=== PATIENT | female | born 1955 | race Caucasian/White ===

== ENCOUNTER 2022-05-28 09:41 | Inpatient (IN) | payer MEDICAID ==
[~2022-05-28] VITALS: Ht 157.5 cm; Wt 63.5 kg
[~2022-05-28 09:41] MED LIST: ASPI-1497 PO; GLIM2TAB30 PO; METF-414 PO; OMEP20CA4 PO; blood pressure PO
[2022-05-28 10:37] LABS: BASOPHILS % 0.6 % (0.0-2.0); EOSINOPHILS % 0.1 % (0.0-5.0); HEMATOCRIT. 24.4 % (36.0-48.0); HEMOGLOBIN. 8.3 g/dL (12.0-16.0); LYMPHOCYTES % 9.2 % (20.0-50.0); MEAN CORPUSCULAR HEMOGLOBIN 30.5 pg (28.0-32.0); MEAN CORPUSCULAR VOLUME 89.6 fL (81.0-99.0); MONOCYTES % 11.2 % (2.0-8.0); NEUTROPHILS % 78.9 % (40.0-76.0); PLATELET 306 x1000/uL (130-400); RED BLOOD CELL COUNT 2.72 mill/uL (4.2-5.4); RED CELL DISTRIBUTION WIDTH 14.2 % (11.6-14.6)
[2022-05-28 10:45] LABS: CHLORIDE 87 mEq/L (98-107)
[2022-05-28] MEDS ORDERED: SODIUM CHLORIDE 0.9% 1,000 ML IV ONE (11:30)
[2022-05-28] MEDS ORDERED: ONDANSETRON HCL 4MG/2ML INJ IV PRN (14:00)
[2022-05-28 16:45] VITALS: BP 126/54
[2022-05-28] MEDS ORDERED: CEFTRIAXONE 1 G PREMIX 50 ML IV SCH (16:45)
[2022-05-28] MEDS ORDERED: DEXTROSE 50% WATER 50ML SYRINGE IV PRN (16:45)
[2022-05-28] MEDS ORDERED: AZITHROMYCIN 500MG/250ML 250 ML IV NR (16:45)
[2022-05-28] MEDS: BLOOD SUGAR DIAGNOSTIC STRIP TEST SCH ×2 (17:20→20:40)
[2022-05-28] MEDS: INSULIN LISPRO 100 UNITS/ML SUBCUT SCH ×2 (17:50→21:23)
[2022-05-28 17:56] VITALS: BP 126/64
[2022-05-28] MEDS: ACETAMINOPHEN 325MG TABLET PO PRN (19:07)
[2022-05-28 20:00] VITALS: BP 87/34
[2022-05-28] MEDS ORDERED: SODIUM CHLORIDE 0.9% 500 ML IV NR (20:45)
[2022-05-28] MEDS ORDERED: EPOETIN ALFA 10000UNITS/ML VIAL SUBCUT NR (21:00)
[2022-05-28] MEDS: CEFTRIAXONE 1,000 MG in DEXTROSE 5% WATER 50 ML IV SCH (21:48)
[2022-05-28 22:15] VITALS: BP 104/42
[2022-05-29] VITALS: BP 114/55
[2022-05-29 04:00] VITALS: BP 107/56
[2022-05-29] MEDS: BLOOD SUGAR DIAGNOSTIC STRIP TEST SCH ×4 (06:40→21:07)
[2022-05-29] MEDS: INSULIN LISPRO 100 UNITS/ML SUBCUT SCH ×4 (07:10→21:00)
[2022-05-29 07:18] LABS: BASOPHILS % 0.5 % (0.0-2.0); EOSINOPHILS % 0.1 % (0.0-5.0); HEMATOCRIT. 24.6 % (36.0-48.0); HEMOGLOBIN. 8.5 g/dL (12.0-16.0); MEAN CORPUSCULAR HEMOGLOBIN 30.7 pg (28.0-32.0); MEAN CORPUSCULAR VOLUME 88.4 fL (81.0-99.0); MEAN PLATELET VOLUME 7.7 fl (7.4-10.4); MONOCYTES % 11.6 % (2.0-8.0); NEUTROPHILS % 74.8 % (40.0-76.0); PLATELET 333 x1000/uL (130-400); RED BLOOD CELL COUNT 2.78 mill/uL (4.2-5.4)
[2022-05-29 07:26] LABS: INR 1.1; PARTIAL THROMBOPLASTIN TIME 34.9 sec (23.4-31.0); PROTHROMBIN TIME 11.8 sec (9.6-11.0)
[2022-05-29 07:43] LABS: BG BASE EXCESS -12.5 mmol/L (-2.0-2.0); BG CARBOXYHEMOGLOBIN 0.1 % (0.5-1.5); BG HCO3 ACT 13.8 mmol/L (22.0-26.0); BG OXYGEN SATURATION 93.9 % (92.0-98.5); BG OXYHEMOGLOBIN 92.9 % (94.0-97.0); BG PCO2 32.9 mmHg (35.0-45.0); BG PO2 83.7 mmHg (75.0-100.0); BG SAMPLE SITE RIGHT BRACHIAL; BG TOTAL HEMOGLOBIN 11.1 g/dL (12.0-18.0); BG VENT MODE OXYGENATOR
[2022-05-29 08:00] VITALS: BP 106/67
[2022-05-29 08:14] LABS: CHLORIDE 89 mEq/L (98-107)
[2022-05-29 08:36] LABS: CREATINE KINASE 1173 IU/L (26-192)
[2022-05-29 08:46] LABS: PHOSPHORUS 8.3 mg/dL (2.5-4.9)
[2022-05-29 12:00] VITALS: BP 113/71
[2022-05-29] MEDS: SODIUM BICARBONATE 150 MEQ in DEXTROSE 5% WATER 1,000 ML IV SCH ×2 (12:51→23:00)
[2022-05-29] MEDS: DEXAMETHASONE 6MG TABLET PO SCH (12:51)
[2022-05-29] MEDS: ACETAMINOPHEN 325MG TABLET PO PRN (12:52)
[2022-05-29] MEDS: ALBUTEROL 6.7GM HFA INHALER ORI SCH ×3 (12:52→23:30)
[2022-05-29] MEDS: AZITHROMYCIN 500 MG in DEXT 5% WATER 250 ML IV SCH (13:39)
[2022-05-29 16:00] VITALS: BP 118/67
[2022-05-29] MEDS ORDERED: CEFTRIAXONE 1,000 MG in DEXTROSE 5% WATER 50 ML IV SCH (16:00)
[2022-05-29] MEDS ORDERED: SODIUM BICARBONATE 8.4% 1 MEQ/ML 50ML SYR IV NR (16:30)
[2022-05-29] MEDS: CALCIUM CARBONATE 500MG TABLET CHEW PO SCH (18:02)
[2022-05-29 20:00] VITALS: BP 139/67
[2022-05-29] MEDS: CEFTRIAXONE 1,000 MG in DEXTROSE 5% WATER 50 ML IV SCH (21:09)
[2022-05-30] VITALS: BP 126/60
[2022-05-30 04:00] VITALS: BP 129/56
[2022-05-30] MEDS: ALBUTEROL 6.7GM HFA INHALER ORI SCH ×4 (06:27→23:54)
[2022-05-30] MEDS: BLOOD SUGAR DIAGNOSTIC STRIP TEST SCH ×4 (06:27→21:30)
[2022-05-30] MEDS: INSULIN LISPRO 100 UNITS/ML SUBCUT SCH ×4 (06:32→21:27)
[2022-05-30] MEDS: CALCIUM CARBONATE 500MG TABLET CHEW PO SCH ×3 (06:33→17:14)
[2022-05-30 08:00] VITALS: BP 122/69
[2022-05-30 08:19] LABS: BASOPHILS % 0.1 % (0.0-2.0); HEMATOCRIT. 22.9 % (36.0-48.0); LYMPHOCYTES % 8.1 % (20.0-50.0); MEAN CORPUSCULAR HEMOGLOBIN 30.8 pg (28.0-32.0); MEAN CORPUSCULAR VOLUME 87.9 fL (81.0-99.0); MEAN PLATELET VOLUME 7.4 fl (7.4-10.4); MONOCYTES % 3.7 % (2.0-8.0); NEUTROPHILS % 88.1 % (40.0-76.0); PLATELET 379 x1000/uL (130-400); RED BLOOD CELL COUNT 2.61 mill/uL (4.2-5.4); RED CELL DISTRIBUTION WIDTH 14.1 % (11.6-14.6)
[2022-05-30 09:06] LABS: PHOSPHORUS 8.1 mg/dL (2.5-4.9)
[2022-05-30] MEDS: DEXAMETHASONE 6MG TABLET PO SCH (10:09)
[2022-05-30] MEDS: ACETAMINOPHEN 325MG TABLET PO PRN (10:09)
[2022-05-30 12:00] VITALS: BP 113/39
[2022-05-30] MEDS: AZITHROMYCIN 500 MG in DEXT 5% WATER 250 ML IV SCH (14:23)
[2022-05-30 16:00] VITALS: BP 118/43
[2022-05-30 18:44] LABS: CLARITY URINE CLEAR (CLEAR); COLOR URINE YELLOW (YELLOW); KETONES URINE TRACE (NEGATIVE); LEUKOCYTE ESTERASE URINE NEGATIVE (NEGATIVE); NITRITE URINE NEGATIVE (NEGATIVE); OCCULT BLOOD URINE 1+ (NEGATIVE); PROTEIN URINE 2+ (NEGATIVE); SPECIFIC GRAVITY URINE 1.013 (1.005-1.030); UROBILINOGEN URINE 0.2 E.U./dL (0.2-1.0)
[2022-05-30 18:50] LABS: SODIUM URINE RANDOM 16 mEq/L
[2022-05-30] MEDS: CEFTRIAXONE 1,000 MG in DEXTROSE 5% WATER 50 ML IV SCH ×2 (21:29→21:35)
[2022-05-30] MEDS: SODIUM BICARBONATE 150 MEQ in DEXTROSE 5% WATER 1,000 ML IV SCH ×2 (23:39→23:42)
[2022-05-30] MEDS: ALBUTEROL 6.7GM HFA INHALER ORI PRN (23:51)
[2022-05-31] VITALS: BP 124/56
[2022-05-31 04:00] VITALS: BP 127/62
[2022-05-31] MEDS: BLOOD SUGAR DIAGNOSTIC STRIP TEST SCH ×4 (05:48→21:00)
[2022-05-31] MEDS: ALBUTEROL 6.7GM HFA INHALER ORI PRN (05:49)
[2022-05-31] MEDS: ALBUTEROL 6.7GM HFA INHALER ORI SCH ×4 (05:49→23:30)
[2022-05-31] MEDS: INSULIN LISPRO 100 UNITS/ML SUBCUT SCH ×4 (06:06→21:50)
[2022-05-31] MEDS: CALCIUM CARBONATE 500MG TABLET CHEW PO SCH ×3 (06:14→17:39)
[2022-05-31 07:53] LABS: BASOPHILS % 0.1 % (0.0-2.0); HEMATOCRIT. 23.4 % (36.0-48.0); HEMOGLOBIN. 8.2 g/dL (12.0-16.0); LYMPHOCYTES % 8.5 % (20.0-50.0); MEAN CORPUSCULAR HEMOGLOBIN 30.8 pg (28.0-32.0); MEAN CORPUSCULAR VOLUME 87.7 fL (81.0-99.0); MEAN PLATELET VOLUME 7.1 fl (7.4-10.4); MONOCYTES % 10.9 % (2.0-8.0); NEUTROPHILS % 80.5 % (40.0-76.0); PLATELET 436 x1000/uL (130-400); RED BLOOD CELL COUNT 2.67 mill/uL (4.2-5.4); RED CELL DISTRIBUTION WIDTH 14.2 % (11.6-14.6)
[2022-05-31 08:00] VITALS: BP 135/53
[2022-05-31 08:07] LABS: PHOSPHORUS 6.6 mg/dL (2.5-4.9)
[2022-05-31] MEDS: DEXAMETHASONE 6MG TABLET PO SCH (09:29)
[2022-05-31] MEDS: SODIUM BICARBONATE 150 MEQ in DEXTROSE 5% WATER 1,000 ML IV SCH ×2 (10:55→21:52)
[2022-05-31 12:00] VITALS: BP 121/54
[2022-05-31] MEDS: AZITHROMYCIN 500 MG in DEXT 5% WATER 250 ML IV SCH (14:59)
[2022-05-31 16:00] VITALS: BP 116/56
[2022-05-31] MEDS ORDERED: INSULIN LISPRO 100 UNITS/ML SUBCUT NR (18:00)
[2022-05-31 20:00] VITALS: BP 135/57
[2022-05-31] MEDS: INSULIN GLARGINE 100 UNITS/ML SUBCUT SCH (21:50)
[2022-06-01] VITALS: BP 140/59
[2022-06-01 04:00] VITALS: BP 120/53
[2022-06-01] MEDS: ALBUTEROL 6.7GM HFA INHALER ORI SCH ×4 (05:30→23:54)
[2022-06-01] MEDS: BLOOD SUGAR DIAGNOSTIC STRIP TEST SCH ×4 (06:14→20:48)
[2022-06-01] MEDS: CALCIUM CARBONATE 500MG TABLET CHEW PO SCH ×3 (06:51→17:49)
[2022-06-01] MEDS: INSULIN LISPRO 100 UNITS/ML SUBCUT SCH ×4 (06:52→21:02)
[2022-06-01 08:00] VITALS: BP 122/55
[2022-06-01] MEDS: DEXAMETHASONE 6MG TABLET PO SCH (09:54)
[2022-06-01] MEDS: INSULIN GLARGINE 100 UNITS/ML SUBCUT SCH ×2 (09:55→21:02)
[2022-06-01 12:00] VITALS: BP 128/60
[2022-06-01] MEDS: SODIUM BICARBONATE 150 MEQ in DEXTROSE 5% WATER 1,000 ML IV SCH ×2 (13:15→21:07)
[2022-06-01] MEDS: AZITHROMYCIN 500 MG in DEXT 5% WATER 250 ML IV SCH (14:55)
[2022-06-01 16:00] VITALS: BP 132/60
[2022-06-01 16:23] LABS: HEMATOCRIT. 24.7 % (36.0-48.0); HEMOGLOBIN. 8.3 g/dL (12.0-16.0); MEAN CORPUSCULAR HEMOGLOBIN 29.8 pg (28.0-32.0); MEAN CORPUSCULAR VOLUME 88.9 fL (81.0-99.0); MEAN PLATELET VOLUME 6.3 fl (7.4-10.4); PLATELET 459 x1000/uL (130-400); RED BLOOD CELL COUNT 2.78 mill/uL (4.2-5.4); RED CELL DISTRIBUTION WIDTH 14.3 % (11.6-14.6)
[2022-06-01 16:54] LABS: PHOSPHORUS 4.7 mg/dL (2.5-4.9)
[2022-06-01] MEDS: GUAIFENESIN-DM 200MG-20MG/10ML UDC PO PRN (17:49)
[2022-06-01 20:00] VITALS: BP 136/52
[2022-06-01] MEDS: CEFTRIAXONE 1,000 MG in DEXTROSE 5% WATER 50 ML IV SCH (20:59)
[2022-06-01 23:13] LABS: PLATELET ESTIMATE INCREASED
[2022-06-02] VITALS: BP 138/70
[2022-06-02 04:00] VITALS: BP 147/67
[2022-06-02] MEDS: ALBUTEROL 6.7GM HFA INHALER ORI SCH ×4 (05:28→22:37)
[2022-06-02] MEDS: BLOOD SUGAR DIAGNOSTIC STRIP TEST SCH ×4 (05:57→21:00)
[2022-06-02] MEDS: INSULIN LISPRO 100 UNITS/ML SUBCUT SCH ×4 (06:29→21:00)
[2022-06-02 07:24] LABS: HEMATOCRIT. 25.1 % (36.0-48.0); HEMOGLOBIN. 8.6 g/dL (12.0-16.0); MEAN CORPUSCULAR HEMOGLOBIN 30.3 pg (28.0-32.0); MEAN CORPUSCULAR VOLUME 88.6 fL (81.0-99.0); MEAN PLATELET VOLUME 6.5 fl (7.4-10.4); PLATELET 463 x1000/uL (130-400); RED BLOOD CELL COUNT 2.83 mill/uL (4.2-5.4); RED CELL DISTRIBUTION WIDTH 14.4 % (11.6-14.6)
[2022-06-02 08:00] VITALS: BP 148/63
[2022-06-02 08:05] LABS: PHOSPHORUS 3.9 mg/dL (2.5-4.9)
[2022-06-02] MEDS: DEXAMETHASONE 6MG TABLET PO SCH (09:41)
[2022-06-02] MEDS: CALCIUM CARBONATE 500MG TABLET CHEW PO SCH ×3 (09:41→17:30)
[2022-06-02] MEDS: DEXT 5%/0.9% NACL 1,000 ML IV SCH (09:42)
[2022-06-02] MEDS: INSULIN GLARGINE 100 UNITS/ML SUBCUT SCH ×2 (09:45→22:36)
[2022-06-02] MEDS ORDERED: POTASSIUM CHLORIDE 20MEQ TABLET SR PO SCH (10:00)
[2022-06-02 12:00] VITALS: BP 149/67
[2022-06-02 12:22] LABS: BG BASE EXCESS 14.1 mmol/L (-2.0-2.0); BG CARBOXYHEMOGLOBIN 0.1 % (0.5-1.5); BG DEOXYHEMOGLOBIN 16.9 % (0.0-5.0); BG FRACTION INSPIRED OXYGEN 21; BG HCO3 ACT 38.1 mmol/L (22.0-26.0); BG METHEMOGLOBIN 0.4 % (0.0-1.5); BG OXYHEMOGLOBIN 82.6 % (94.0-97.0); BG PCO2 45.9 mmHg (35.0-45.0); BG PH 7.537 (7.350-7.450); BG PO2 43.5 mmHg (75.0-100.0); BG SAMPLE SITE LEFT RADIAL; BG TOTAL HEMOGLOBIN 9.1 g/dL (12.0-18.0); BG VENT MODE ROOM AIR
[2022-06-02 16:00] VITALS: BP 150/72
[2022-06-02 19:12] LABS: PLATELET ESTIMATE INCREASED
[2022-06-02 20:00] VITALS: BP 144/62
[2022-06-02] MEDS: CEFTRIAXONE 1,000 MG in DEXTROSE 5% WATER 50 ML IV SCH (20:34)
[2022-06-02] MEDS: ACETAMINOPHEN 325MG TABLET PO PRN (20:34)
[2022-06-03] VITALS: BP 161/70
[2022-06-03 04:00] VITALS: BP 155/92
[2022-06-03 06:48] LABS: BASOPHILS % 0.1 % (0.0-2.0); HEMATOCRIT. 26.3 % (36.0-48.0); HEMOGLOBIN. 8.8 g/dL (12.0-16.0); LYMPHOCYTES % 7.4 % (20.0-50.0); MEAN CORPUSCULAR HEMOGLOBIN 30.4 pg (28.0-32.0); MEAN PLATELET VOLUME 6.5 fl (7.4-10.4); MONOCYTES % 13.2 % (2.0-8.0); NEUTROPHILS % 79.3 % (40.0-76.0); PLATELET 433 x1000/uL (130-400); RED BLOOD CELL COUNT 2.89 mill/uL (4.2-5.4); RED CELL DISTRIBUTION WIDTH 14.5 % (11.6-14.6)
[2022-06-03] MEDS: ALBUTEROL 6.7GM HFA INHALER ORI SCH ×4 (06:52→23:57)
[2022-06-03] MEDS: CALCIUM CARBONATE 500MG TABLET CHEW PO SCH ×3 (06:52→17:30)
[2022-06-03] MEDS: BLOOD SUGAR DIAGNOSTIC STRIP TEST SCH ×4 (06:53→21:38)
[2022-06-03] MEDS: DEXT 5%/0.9% NACL 1,000 ML IV SCH (06:53)
[2022-06-03] MEDS: INSULIN LISPRO 100 UNITS/ML SUBCUT SCH ×4 (07:01→21:38)
[2022-06-03 07:38] LABS: PHOSPHORUS 2.8 mg/dL (2.5-4.9)
[2022-06-03 08:00] VITALS: BP 158/72
[2022-06-03] MEDS: DEXAMETHASONE 6MG TABLET PO SCH (10:27)
[2022-06-03 12:00] VITALS: BP 152/68
[2022-06-03] MEDS ORDERED: OXYMETAZOLINE HCL NASAL SPRAY 15ML BOTHNSTRLS PRN (12:00)
[2022-06-03 16:00] VITALS: BP 115/67
[2022-06-03] MEDS: INSULIN GLARGINE 100 UNITS/ML SUBCUT SCH (21:38)
[2022-06-04] VITALS (7 sets, daily range): BP systolic 155–173; BP diastolic 69–82
[2022-06-04] MEDS: CALCIUM CARBONATE 500MG TABLET CHEW PO SCH ×3 (05:44→18:19)
[2022-06-04] MEDS: INSULIN LISPRO 100 UNITS/ML SUBCUT SCH ×4 (05:44→21:27)
[2022-06-04] MEDS: BLOOD SUGAR DIAGNOSTIC STRIP TEST SCH ×4 (05:44→20:26)
[2022-06-04] MEDS: ALBUTEROL 6.7GM HFA INHALER ORI SCH ×2 (05:45→23:18)
[2022-06-04 07:36] LABS: HEMATOCRIT. 27.5 % (36.0-48.0); HEMOGLOBIN. 9.3 g/dL (12.0-16.0); MEAN CORPUSCULAR HEMOGLOBIN 30.3 pg (28.0-32.0); MEAN CORPUSCULAR VOLUME 89.4 fL (81.0-99.0); PLATELET 421 x1000/uL (130-400); RED BLOOD CELL COUNT 3.07 mill/uL (4.2-5.4); RED CELL DISTRIBUTION WIDTH 14.6 % (11.6-14.6)
[2022-06-04 07:55] LABS: PHOSPHORUS 2.2 mg/dL (2.5-4.9)
[2022-06-04] MEDS: DEXAMETHASONE 6MG TABLET PO SCH (09:26)
[2022-06-04] MEDS: INSULIN GLARGINE 100 UNITS/ML SUBCUT SCH ×2 (10:00→21:26)
[2022-06-04] MEDS: AMLODIPINE 10MG TABLET PO SCH (10:48)
[2022-06-04] MEDS: HYDRALAZINE HCL 25MG TABLET PO SCH ×2 (13:14→21:24)
[2022-06-04] MEDS ORDERED: AMLO10TA80 MT (14:06)
[2022-06-04 14:55] LABS: PLATELET ESTIMATE SLIGHTLY INCREASED
[2022-06-04] MEDS ORDERED: SODIUM PHOS,M-BASIC-D-BASIC 15 MM in DEXT 5% WATER 245 ML IV NR (15:00)
[2022-06-05] VITALS: BP 142/64
[2022-06-05 04:00] VITALS: BP 150/75
[2022-06-05] MEDS: ALBUTEROL 6.7GM HFA INHALER ORI SCH (05:32)
[2022-06-05 07:37] LABS: HEMOGLOBIN. 8.7 g/dL (12.0-16.0); MEAN CORPUSCULAR HEMOGLOBIN 29.4 pg (28.0-32.0); MEAN CORPUSCULAR VOLUME 91.2 fL (81.0-99.0); MEAN PLATELET VOLUME 6.2 fl (7.4-10.4); PLATELET 378 x1000/uL (130-400); RED BLOOD CELL COUNT 2.96 mill/uL (4.2-5.4); RED CELL DISTRIBUTION WIDTH 14.9 % (11.6-14.6)
[2022-06-05] MEDS: BLOOD SUGAR DIAGNOSTIC STRIP TEST SCH ×4 (07:40→21:40)
[2022-06-05 07:57] LABS: PHOSPHORUS 2.2 mg/dL (2.5-4.9)
[2022-06-05 08:00] VITALS: BP 152/77
[2022-06-05] MEDS: INSULIN LISPRO 100 UNITS/ML SUBCUT SCH ×4 (08:10→21:58)
[2022-06-05] MEDS ORDERED: POTASSIUM-SODIUM PHOSPHATE POWDER PACKET PO NR (09:30)
[2022-06-05] MEDS: CALCIUM CARBONATE 500MG TABLET CHEW PO SCH ×3 (09:43→17:37)
[2022-06-05] MEDS: AMLODIPINE 10MG TABLET PO SCH (09:43)
[2022-06-05] MEDS: DEXAMETHASONE 6MG TABLET PO SCH (09:43)
[2022-06-05] MEDS: INSULIN GLARGINE 100 UNITS/ML SUBCUT SCH ×2 (10:05→21:59)
[2022-06-05 12:00] VITALS: BP 149/72
[2022-06-05 12:12] LABS: PLATELET ESTIMATE NORMAL
[2022-06-05] MEDS ORDERED: IPRATROPIUM/ALBUTEROL 0.5-3(2.5)MG/3ML NEB HHN PRN (12:30)
[2022-06-05 16:00] VITALS: BP 139/75
[2022-06-05 20:00] VITALS: BP 149/78
[2022-06-05] MEDS: HYDRALAZINE HCL 50MG TABLET PO SCH (20:58)
[2022-06-05] MEDS: GUAIFENESIN-DM 200MG-20MG/10ML UDC PO PRN (20:58)
[2022-06-06 04:00] VITALS: BP 160/89
[2022-06-06] MEDS: GUAIFENESIN-DM 200MG-20MG/10ML UDC PO PRN (05:20)
[2022-06-06] MEDS: BLOOD SUGAR DIAGNOSTIC STRIP TEST SCH ×3 (05:21→17:38)
[2022-06-06] MEDS: INSULIN LISPRO 100 UNITS/ML SUBCUT SCH ×3 (05:22→17:39)
[2022-06-06 05:26] LABS: BASOPHILS % 0.2 % (0.0-2.0); EOSINOPHILS % 1.1 % (0.0-5.0); HEMATOCRIT. 30.7 % (36.0-48.0); LYMPHOCYTES % 12.7 % (20.0-50.0); MEAN CORPUSCULAR HEMOGLOBIN 29.2 pg (28.0-32.0); MEAN CORPUSCULAR VOLUME 89.7 fL (81.0-99.0); MEAN PLATELET VOLUME 6.3 fl (7.4-10.4); MONOCYTES % 7.2 % (2.0-8.0); NEUTROPHILS % 78.8 % (40.0-76.0); PLATELET 377 x1000/uL (130-400); RED BLOOD CELL COUNT 3.42 mill/uL (4.2-5.4); RED CELL DISTRIBUTION WIDTH 14.6 % (11.6-14.6)
[2022-06-06 06:07] VITALS: BP 160/81
[2022-06-06 06:31] LABS: PHOSPHORUS 2.5 mg/dL (2.5-4.9)
[2022-06-06 08:00] VITALS: BP 141/80
[2022-06-06] MEDS: HYDRALAZINE HCL 50MG TABLET PO SCH (08:59)
[2022-06-06] MEDS: DEXAMETHASONE 6MG TABLET PO SCH (08:59)
[2022-06-06] MEDS: CALCIUM CARBONATE 500MG TABLET CHEW PO SCH (08:59)
[2022-06-06] MEDS: AMLODIPINE 10MG TABLET PO SCH (08:59)
[2022-06-06] MEDS: INSULIN GLARGINE 100 UNITS/ML SUBCUT SCH (10:32)
[2022-06-06 11:54] LABS: BG BASE EXCESS 8.8 mmol/L (-2.0-2.0); BG CARBOXYHEMOGLOBIN 0.2 % (0.5-1.5); BG DEOXYHEMOGLOBIN 7.6 % (0.0-5.0); BG HCO3 ACT 32.1 mmol/L (22.0-26.0); BG METHEMOGLOBIN 0.7 % (0.0-1.5); BG OXYGEN SATURATION 92.3 % (92.0-98.5); BG OXYHEMOGLOBIN 91.5 % (94.0-97.0); BG PCO2 39.1 mmHg (35.0-45.0); BG PH 7.532 (7.350-7.450); BG PO2 58.6 mmHg (75.0-100.0); BG SAMPLE SITE RIGHT BRACHIAL; BG TOTAL HEMOGLOBIN 10.4 g/dL (12.0-18.0); BG VENT MODE ROOM AIR
[2022-06-06 12:00] VITALS: BP 136/76
[2022-06-06] MEDS ORDERED: HYDR-4135 MT (12:23)
[2022-06-06 16:00] VITALS: BP 146/79
[2022-06-06 16:33] VITALS: BP 121/79
[2022-06-06] MEDS ORDERED: INSULIN GLARGINE 100 UNITS/ML SUBCUT SCH (22:00)
[2022-06-07] MEDS ORDERED: CALCIUM CARBONATE 500MG TABLET CHEW PO SCH (09:00)
== END 2022-06-06 18:20 | disposition home or self-care (01) | DRG 720 ==
LOC: ER 09:41 → 6WST 13:14 → ENRESERV 14:49 → MICUSO 16:36 → 7EST 17:59 → 7WST 06-04 16:05
PROVIDERS: ADMIT Internal Medicine; ATTEND Internal Medicine
DX: A41.89 Other specified sepsis (principal); J96.00 Acute respiratory failure, unspecified whether with hypoxia or hypercapnia; J12.82 Pneumonia due to coronavirus disease 2019; N17.0 Acute kidney failure with tubular necrosis; E44.1 Mild protein-calorie malnutrition; E11.22 Type 2 diabetes mellitus with diabetic chronic kidney disease; D64.9 Anemia, unspecified; U07.1 COVID-19; I13.0 Hypertensive heart and chronic kidney disease with heart failure and stage 1 through stage 4 chronic kidney disease, or unspecified chronic kidney disease; N18.9 Chronic kidney disease, unspecified; I50.9 Heart failure, unspecified; E87.2 Acidosis; E87.1 Hypo-osmolality and hyponatremia; E87.8 Other disorders of electrolyte and fluid balance, not elsewhere classified; E03.9 Hypothyroidism, unspecified; E11.65 Type 2 diabetes mellitus with hyperglycemia; E78.5 Hyperlipidemia, unspecified; R04.0 Epistaxis; J45.909 Unspecified asthma, uncomplicated; Z82.49 Family history of ischemic heart disease and other diseases of the circulatory system; Z79.84 Long term (current) use of oral hypoglycemic drugs; Z79.82 Long term (current) use of aspirin
CPT/HCPCS: 36415; 36600; 71045; 74176; 80048; 80053; 81003; 82375; 82533; 82550; 82805; 82962; 83735; 83880; 83935; 84100; 84300; 84443; 85025; 87426; 93005; 99291; J0456; J0696; J0885; J1815; J3490; J7030; J7042; J7060; J7070